=== PATIENT | male | born 1955 | race Caucasian/White ===

== ENCOUNTER 2019-04-04 14:29 | Emergency (ER) | payer OTHER ==
[~2019-04-04] VITALS: Ht 182.9 cm; Wt 90.7 kg
[2019-04-04 15:21] LABS: Basophils # (auto) 0 uL; Basophils % (auto) 0.4 % (0.0-2.0); Eosinophils # (auto) 0 uL; Eosinophils % (auto) 0.1 % (0.0-7.0); Hemoglobin 16.4 g/dL (13.5-17.5); Lymphocytes # (auto) 1.3 uL; Lymphocytes % (auto) 12.8 % (10.0-50.0); Mean Corpuscular Hemoglobin 30.6 pg (28.0-32.0); Mean Corpuscular Hgb Conc. 34.1 g/dL (32.0-36.0); Mean Corpuscular Volume 89.6 fL (80.0-100.0); Monocytes # (auto) 0.5 uL; Monocytes % (auto) 4.8 % (0.0-12.0); Neutrophils # (auto) 8.5 uL; Neutrophils % (auto) 81.9 % (37.0-80.0); Nucleated Red Blood Cells % 0.2 %; Platelet Count (auto) 242 10^3/uL (140-450); Red Blood Cells 5.36 10^6/uL (4.5-5.90); Red Cell Distribution Width 13.3 % (11.8-14.3); White Blood Cell 10.4 10^3/uL (4.4-10.8)
[2019-04-04 15:36] LABS: Alanine Aminotransferase 36 U/L (16-61); Albumin 4.1 g/dL (3.4-5.0); Anion Gap 6 (5-15); Aspartate Aminotransferase 19 U/L (15-37); BUN/Creatinine Ratio 10.2; Blood Urea Nitrogen 12 mg/dL (7-18); Calcium 9.5 mg/dL (8.5-10.1); Carbon Dioxide 27 mmol/L (21-32); Chloride 108 mmol/L (98-107); GFR African American 81 mL/min; GFR Non-African American 67 mL/min; Glucose 135 mg/dL (74-106); Potassium 3.6 mmol/L (3.5-5.1); Sodium 141 mmol/L (136-145)
[2019-04-04 15:40] LABS: Alkaline Phosphatase 99 U/L (45-117); Bilirubin, Total 1.9 mg/dL (0.2-1.0); Total Protein 8.5 g/dL (6.4-8.2)
[2019-04-04 17:26] LABS: Urine Bacteria NONE SEEN /hpf (None Seen); Urine Blood Negative /uL (Negative); Urine Mucus FEW (None Seen); Urine Specific Gravity 1.021 (1.001-1.035); Urine WBC 9 /hpf (0 - 3)
[2019-04-04] MEDS ORDERED: cloNIDine HCL 0.1 MG TAB PO ONE (20:15)
[2019-04-04 20:19] LABS: Amylase 45 U/L (25-115); Lipase 77 U/L (73-393)
[2019-04-04 21:25] VITALS: BP 145/96
== END 2019-04-05 00:57 | disposition home or self-care (01) ==
LOC: ER 14:34
DX: K21.9 Gastro-esophageal reflux disease without esophagitis (principal); N39.0 Urinary tract infection, site not specified; I10 Essential (primary) hypertension
CPT/HCPCS: 36415; 74176; 80053; 81001; 82150; 83690; 84484; 85025; 93005